=== PATIENT | male | born 1985 | race African-American/Black ===

== ENCOUNTER 2023-08-26 10:08 | Emergency (ER) | payer OTHER ==
[2023-08-26 10:16] VITALS: RESP 18; BMI 36.6
[2023-08-26] MEDS ORDERED: guaiFENesin/D-METHORPHAN HB 10 ML UNIT-DOSE CUPS ONE (11:12)
[2023-08-26] MEDS ORDERED: IBUPROFEN 400 MG TABLET (FP) PO ONE (11:13)
[2023-08-26] MEDS: guaiFENesin/D-METHORPHAN HB 10 ML UNIT-DOSE CUPS PO ONE (11:17)
[2023-08-26] MEDS: IBUPROFEN 400 MG TABLET (FP) PO ONE (11:17)
[2023-08-26 12:31] VITALS: BP 121/81; PULSE 104; TEMP 97.9
== END 2023-08-26 12:48 | disposition home or self-care (01) ==
LOC: JERFT 10:08
DX: J00 Acute nasopharyngitis [common cold] (principal); R05.1 Acute cough; R09.81 Nasal congestion; R63.0 Anorexia; R11.10 Vomiting, unspecified; Z20.822 Contact with and (suspected) exposure to COVID-19
CPT/HCPCS: 0241U-QW; 71046-TC-FY; 99284-25